=== PATIENT | female | born 1995 | race Caucasian/White ===

== ENCOUNTER → 2017-01-22 | Outpatient (CLI) | payer MEDICAID ==
[~2017-01-22] MED LIST: MOTRIN-DPS800 MG PO; NIPPLECREAM TP; PRENATAL VITAM1 EAC6 PO
== END | disposition home or self-care (01) ==
LOC: RAD.S 11:00
DX: Z36 Encounter for antenatal screening of mother (principal); Z3A.25 25 weeks gestation of pregnancy

== ENCOUNTER 2017-04-27 21:45 | Outpatient (CLI) | payer MEDICAID | END 2017-04-28 01:33 | disposition home or self-care (01) | DX: O99.89 Other specified diseases and conditions complicating pregnancy, childbirth and the puerperium (principal); R10.9 Unspecified abdominal pain; Z3A.40 40 weeks gestation of pregnancy ==

== ENCOUNTER 2017-04-28 12:55 | Inpatient (IN) | payer MEDICAID ==
[~2017-04-28] VITALS: Ht 157.5 cm; Wt 63.0 kg
--- NOTE | ~2017-04-28 | OR ---
ADMIT: 04/28/2017 RM/LOC: 219 [facility] MR#: [id number] 2620 [facility] [address] [place] [id number] MEAVE PANDA [address] [place] [address] Operative/Delivery Room Report SEX: F AGE: 21 : 1995 SURGERY DATE: 04/29/2017 SURGEON: Kyle Ledezma MD PRINCIPAL DIAGNOSES: 1. Term intrauterine . 2. Status post epidural placement for pain control. POSTOPERATIVE DIAGNOSES: 1. Term intrauterine . 2. Status post epidural placement for pain control. PROCEDURE PERFORMED: Removal of previously placed epidural catheter. INDICATION: The patient is a 21-year-old female, 1, who had presented at 40-1/7 weeks' estimated gestational age for induction of labor, had an uncomplicated labor and subsequent spontaneous vaginal delivery. PROCEDURE IN DETAIL: The patient was placed in sitting position. Stabilizing tapes were removed, and epidural catheter was removed with tip intact. Epidural site was dressed with a Band-Aid. The patient tolerated the procedure well. Kyle Ledezma MD/ nguyenl JOB #: [id number] CC: Sherry Gooden, Attending Physician Sherry Gooden, Family Physician
--- NOTE | ~2017-04-28 | OR ---
ADMIT: 04/28/2017 RM/LOC: 219 [facility] MR#: [id number] 2620 [facility] [address] [place], [place] [id number] MAEVE PANDA [address] [place] [address] Operative/Delivery Room Report SEX: F AGE: 21 : 1995 SURGERY DATE: 04/29/2017 SURGEON: Kyle Ledezma MD PRINCIPAL DIAGNOSIS: Term intrauterine . POSTOPERATIVE DIAGNOSIS: Term intrauterine . PROCEDURE: Spontaneous vaginal delivery. INDICATION: The patient is a 21-year-old female, 1, para 0, who presented at 40-1/7 weeks' estimated gestational age for induction of labor secondary to postdates with advanced cervical dilation. ANESTHESIA: Epidural. ESTIMATED BLOOD LOSS: 250 mL. COMPLICATIONS: None. FINDINGS: Viable male , 7 pounds 3-1/2 ounces with scores of 8 at 1 and 9 at 5 minutes, delivered in left occiput anterior presentation with a nuchal cord x1. PROCEDURE IN DETAIL: When the patient was noted to be complete and pushing, she was prepped and draped in the usual fashion in dorsal lithotomy position. Infant's head was allowed to deliver over an intact perineum. After restitution of the head, the neck was examined for nuchal cord. A nuchal cord x1 was noted and was reduced without difficulty. The anterior followed by the posterior shoulders were delivered followed by expulsion of the remainder of the infant. was placed on the maternal stomach in the care of nursing staff, and after approximately 1 minute's time, cord was clamped x2 and cut. Placenta was then delivered intact with normal appearance. The uterine cervix was visualized and noted to be without lacerations or tears. Attention was then turned to the perineum, where she was noted to have no significant perineal lacerations. The patient tolerated the procedure well and was taken to the recovery room in stable condition. All sponge, instrument, and needle counts were correct. Kyle Ledezma MD/ courtney JOB #: [id number] CC: Sherry Gooden, Attending Physician Sherry Gooden, Family Physician
[2017-05-01] MEDS ORDERED: MOTRIN-DPS800 MG PO (19:22)
[2017-05-01] MEDS ORDERED: PRENATAL VITAM1 EAC6 PO (19:22)
[2017-05-01] MEDS ORDERED: NIPPLECREAM TP (19:22)
--- NOTE | 2017-05-02 13:13 | HP ---
ADMIT: 04/28/2017 RM/LOC: 219 [facility] MR#: [id number] 2620 [facility] [address] [place], [place] [id number] MAEVE PANDA [address] [place], [place] [address] History and Physical SEX: F AGE: 21 : 1995 DATE OF SERVICE: CHIEF COMPLAINT: Augmentation of labor. HISTORY OF PRESENT ILLNESS: This is a 21-year-old female, 1, para 0, who presents to the [facility] with an intrauterine at 40 and 1/7 weeks' gestation with estimated date of confinement of 04/27/2017. She was seen in the office complaining of uterine contractions and examined and noted to be 5 cm. She was therefore sent to the [facility] for monitoring and labor augmentation. Her has been complicated by late entry. Her estimated date of confinement is based off a 23-week ultrasound done at the [facility]. Her has otherwise been uncomplicated. LABORATORY DATA: Blood type is O positive. Antibody screen negative. HIV negative. Rubella immune. RPR nonreactive. Hepatitis B surface antigen negative. Pap, atypical squamous cells of undetermined significance. Gonorrhea and chlamydia negative. Diabetic screen 142. Three- hour glucose tolerance test 78, 140, 123, and 108. Group B strep is negative. PAST MEDICAL HISTORY: She denies hypertension, diabetes, asthma, kidney, or thyroid disease. PAST SURGICAL HISTORY: Tonsillectomy. SOCIAL HISTORY: Father of the baby is involved. She denies tobacco, alcohol, or drug use. ALLERGIES: NO KNOWN DRUG ALLERGIES. CURRENT MEDICATIONS: vitamins. PHYSICAL EXAMINATION: VITAL SIGNS: Blood pressure is 137/102. Repeat blood pressure 137/92, 135/92, and 140/88. She is afebrile. Her pulse is in the 100s. GENERAL: She is not in any acute distress. HEENT: Head is normocephalic and atraumatic. Pupils are equal, round, react to light and accommodation. Extraocular muscles are intact. NECK: Supple. HEART: Regular rate and rhythm. LUNGS: Clear bilaterally. ABDOMEN: Soft, nontender, and nondistended. Gravid. EXTREMITIES: Nontender. heart tones are 150s baseline, moderate variability is present, 15 x 15 accelerations are present. Decelerations are absent. Uterine contractions are every 8 to 9 minutes. Her cervix is 5 cm, 50% effaced, -1 to 0 station. Fetus is vertex. Estimated weight 7 pounds. IMPRESSION: ADMIT: 04/28/2017 RM/LOC: 219 [facility] MR#: [id number] [address] [id number] MAEVE PANDA [address] [place] [id number] History and Physical SEX: F AGE: 21 : 1995 1. This is a 21-year-old female, 1, para 0, with an intrauterine at 40 and 1/7 weeks' gestation. 2. Group B streptococcus negative. 3. Mildly elevated blood pressures. PLAN: At this time, we do plan to admit the patient. We will start Pitocin for labor augmentation. We will also plan to check a CMP and uric acid in addition to her CBC given her mildly elevated blood pressures. We will watch these closely and treat if they become in the severe range or with any lab abnormalities. We will treat her pain as she desires and anticipate a spontaneous vaginal delivery. Sherry Gooden MD/ courtney JOB #: [id number] CC: Sherry Gooden, Attending Physician Sherry Gooden, Family Physician
== END 2017-04-30 15:15 | disposition home or self-care (01) | DRG 775 ==
LOC: 2LDRP 12:55 → BC 12:55 → 2LDRP 12:56 → BC 13:03 → 2LDRP 13:57
PROVIDERS: ADMIT Obstetrics & Gynecology
PROC: 10907ZC Drainage of Amniotic Fluid, Therapeutic from Products of Conception, Via Natural or Artificial Opening (ICD-10-PCS; principal; 2017-04-29)
PROC: 10E0XZZ Delivery of Products of Conception, External Approach (ICD-10-PCS; principal; 2017-04-29)
DX: O48.0 Post-term pregnancy (principal); O69.81X0 Labor and delivery complicated by cord around neck, without compression, not applicable or unspecified; Z3A.40 40 weeks gestation of pregnancy; Z37.0 Single live birth